=== PATIENT | male | born 1980 | race Caucasian/White ===

== ENCOUNTER 2017-01-22 23:49 | Emergency (ER) | payer MEDICAID ==
--- NOTE | 2017-01-23 01:49 | ER Document Report ---
ED Medical Screen (RME) - General Chief Complaint: Flank Pain Stated Complaint: FLANK PAIN Time seen by provider: 01:40 Notes: 36 year old male, chief complaint of left flank pain radiating to the left abdomen, severe, causing nausea, awoke him from sleep tonight. Denies fever, denies hx of the same. Took percocet and ibuprofen left over from dental procedure and this helped a lot. TRAVEL OUTSIDE OF THE [place] IN LAST 30 DAYS: No - Related Data Allergies/Adverse Reactions: No Known Allergies Allergy (Verified 04/25/14 13:03) Past Medical History Psychiatric Medical History: Reports: Hx Depression Past Surgical History: Reports: Hx Testicular Surgery - Immunizations Hx Diphtheria, Pertussis, Tetanus Vaccination: No Physical Exam - Vital signs Vitals: Temp Pulse Resp BP Pulse Ox 98.7 F 66 16 112/69 98 01/23/17 01:27 01/23/17 01:27 01/23/17 01:27 01/23/17 01:27 01/23/17 01:27 - Abdominal Tenderness: Tender - Left mid to lower abdominal tenderness without guarding - Back Back: Other - No overt CVA tenderness Course - Vital Signs Vital signs: Temp Pulse Resp BP Pulse Ox 98.7 F 66 16 112/69 98 01/23/17 01:27 01/23/17 01:27 01/23/17 01:27 01/23/17 01:27 01/23/17 01:27
[2017-01-23 03:12] LABS: ABSOLUTE BASOPHILS # (AUTO) 0.1 10^3/uL (0.0-0.2); ABSOLUTE EOSINOPHILS # (AUTO) 0.1 10^3/uL (0.0-0.6); ABSOLUTE LYMPHOCYTES (AUTO) 2.4 10^3/uL (0.5-4.7); ABSOLUTE MONOCYTES (AUTO) 0.5 10^3/uL (0.1-1.4); ABSOLUTE NEUT (AUTO) 8.3 10^3/uL (1.7-8.2); BASOPHILS % (AUTO) 0.5 % (0-2); EOSINOPHILS % (AUTO) 0.6 % (0-6); HEMATOCRIT 45.2 % (37.9-51.0); HEMOGLOBIN 15.1 g/dL (13.5-17.0); HGB HCT DIFFERENCE 0.1; LYMPHOCYTES % (AUTO) 21.3 % (13-45); MEAN CORPUSCULAR HEMOGLOBIN 27.3 pg (27.0-33.4); MEAN CORPUSCULAR HGB CONC 33.3 g/dL (32.0-36.0); MEAN CORPUSCULAR VOLUME 82 fl (80-97); MONOCYTES % (AUTO) 4.8 % (3-13); RED BLOOD COUNT 5.52 10^6/uL (4.35-5.55); SEGMENTED NEUTROPHILS % (AUTO) 72.8 % (42-78); WHITE BLOOD COUNT 11.4 10^3/uL (4.0-10.5)
[2017-01-23 03:19] LABS: APPEARANCE,URINE SLIGHTLY-CLOUDY; BILIRUBIN,URINE NEGATIVE (NEGATIVE); GLUCOSE, URINE NEGATIVE (NEGATIVE); KETONES,URINE NEGATIVE (NEGATIVE); LEUKOCYTE ESTERASE,URINE TRACE (NEGATIVE); NITRITE,URINE NEGATIVE (NEGATIVE); PROTEIN,URINE 30 mg/dL (NEGATIVE); URINE SPECIFIC GRAVITY 1.021; UROBILINOGEN,URINE NEGATIVE mg/dL (<2.0)
[2017-01-23 03:26] LABS: ANION GAP 14 (5-19); BLOOD UREA NITROGEN 18 mg/dL (7-20); CALCIUM 10.1 mg/dL (8.4-10.2); CARBON DIOXIDE 27 mmol/L (22-30); CHLORIDE 104 mmol/L (98-107); CREATININE RESULT 0.89 mg/dL (0.52-1.25); GLUCOSE 100 mg/dL (75-110); POTASSIUM 5.1 mmol/L (3.6-5.0); SODIUM 144.5 mmol/L (137-145)
[2017-01-23] MEDS ORDERED: PROMETHAZINE HCL 25 MG TABLET PO ONE (07:01)
[2017-01-23] MEDS ORDERED: TAMSULOSIN HCL 0.4 MG CAP.SR.24H PO ONE (07:01)
[2017-01-23] MEDS ORDERED: KETOROLAC TROMETHAMINE 60 MG/2 ML SDV IM ONE (07:01)
[2017-01-23] MEDS ORDERED: HYDROMORPHONE HCL INJ/PF 2 MG/ML AMPULE IM ONE (07:01)
--- NOTE | 2017-01-23 07:03 | ER Document Report ---
ED General - General Chief Complaint: Flank Pain Stated Complaint: FLANK PAIN Mode of Arrival: Ambulatory Information source: Patient Notes: 36-year-old male presents with sudden left flank pain that started at 11 PM last night. Patient notes nausea associated with it. Denies any previous similar episodes. Patient notes blood in his urine TRAVEL OUTSIDE OF THE [place] IN LAST 30 DAYS: No - HPI Onset: Yesterday Onset/Duration: Sudden Quality of pain: Sharp Severity: Moderate Pain Level: 3 Associated symptoms: Nausea Exacerbated by: Denies Relieved by: Denies Similar symptoms previously: No Recently seen / treated by doctor: No - Related Data Allergies/Adverse Reactions: No Known Allergies Allergy (Verified 04/25/14 13:03) Past Medical History - Social History Smoking Status: Never Smoker Cigarette use (# per day): No Chew tobacco use (# tins/day): Yes Smoking Education Provided: No Frequency of alcohol use: None Drug Abuse: None Family History: Reviewed & Not Pertinent Patient has suicidal ideation: No Patient has homicidal ideation: No Renal/ Medical History: Denies: Hx Peritoneal Dialysis Psychiatric Medical History: Reports: Hx Depression Past Surgical History: Reports: Hx Testicular Surgery - Immunizations Hx Diphtheria, Pertussis, Tetanus Vaccination: No Review of Systems - Review of Systems Notes: REVIEW OF SYSTEMS: CONSTITUTIONAL : Denies fever, chills, or sweats. Denies recent illness. EENT: Denies eye, ear, throat, or mouth pain or symptoms. Denies nasal or sinus congestion or discharge. Denies throat, tongue, or mouth swelling or difficulty swallowing. CARDIOVASCULAR: Denies chest pain. Denies palpitations or racing or irregular heart beat. Denies ankle edema. RESPIRATORY: Denies cough, cold, or chest congestion. Denies shortness of breath, difficulty breathing, or wheezing. GASTROINTESTINAL: Admits to nausea left flank pain GENITOURINARY: Admits to blood in urine MUSCULOSKELETAL: Denies back or neck pain or stiffness. Denies joint pain or swelling. SKIN: Denies rash, lesions or sores. HEMATOLOGIC : Denies easy bruising or bleeding. LYMPHATIC: Denies swollen, enlarged glands. NEUROLOGICAL: Denies confusion or altered mental status. Denies passing out or loss of consciousness. Denies dizziness or lightheadedness. Denies headache. Denies weakness or paralysis or loss of use of either side. Denies problems with gait or speech. Denies sensory loss, numbness, or tingling. Denies seizures. PSYCHIATRIC: Denies anxiety or stress. Denies depression, suicidal ideation, or homicidal ideation. ALL OTHER SYSTEMS REVIEWED AND NEGATIVE. Dictation was performed using [employer] voice recognition software PHYSICAL EXAMINATION: GENERAL: Well-appearing, well-nourished and in no acute distress. HEAD: Atraumatic, normocephalic. EYES: Pupils equal round and reactive to light, extraocular movements intact, sclera anicteric, conjunctiva are normal. ENT: Nares patent, oropharynx clear without exudates. Moist mucous membranes. NECK: Normal range of motion, supple without lymphadenopathy LUNGS: Breath sounds clear to auscultation bilaterally and equal. No wheezes rales or rhonchi. HEART: Regular rate and rhythm without murmurs ABDOMEN: Soft, nontender, nondistended abdomen. No guarding, no rebound. No masses appreciated. Musculoskeletal: Normal range of motion, no pitting or edema. No cyanosis. NEUROLOGICAL: Cranial nerves grossly intact. Normal speech, normal gait. Normal sensory, motor exams PSYCH: Normal mood, normal affect. SKIN: Warm, Dry, normal turgor, no rashes or lesions noted. Physical Exam - Vital signs Vitals: Temp Pulse Resp BP Pulse Ox 98.7 F 66 16 112/69 98 01/23/17 01:27 01/23/17 01:27 01/23/17 01:27 01/23/17 01:27 01/23/17 01:27 Course - Re-evaluation Re-evalutation: 01/23/17 08:03 Patient is in no distress at this time however notes the pain is starting to come back. CT was consistent with 4 mm stone. Patient given strainer pain control nausea control and follow-up with urology. Otherwise patient is stable and does not have a urinary tract infection. Appears to be dirty catch urine After performing a Medical Screening Examination, I estimate there is LOW risk for ACUTE APPENDICITIS, BOWEL OBSTRUCTION, ACUTE CHOLECYSTITIS, PERFORATED DIVERTICULITIS, INCARCERATED HERNIA, PANCREATITIS, or PERFORATED ULCER, thus I consider the discharge disposition reasonable. Also, there is no evidence or peritonitis, sepsis, or toxicity. The patient and I have discussed the diagnosis and risks, and we agree with discharging home with close follow-up with the understanding that symptoms and presentations can change. We also discussed returning to the Emergency Department immediately if new or worsening symptoms occur. We have discussed the symptoms which are most concerning (e.g., bloody stool, fever, changing or worsening pain, intractable vomiting - standard verbal up date) that necessitate immediate return. - Vital Signs Vital signs: Temp Pulse Resp BP Pulse Ox 98 F 66 18 111/76 98 01/23/17 07:35 01/23/17 07:35 01/23/17 07:35 01/23/17 07:35 01/23/17 07:35 - Laboratory Result Diagrams: 01/23/17 03:05 01/23/17 03:05 Laboratory results interpreted by me: 01/23/17 01/23/17 01/23/17 03:05 03:05 03:05 WBC 11.4 H Absolute Neutrophils 8.3 H Potassium 5.1 H Urine Protein 30 H Urine Blood MODERATE H Ur Leukocyte Esterase TRACE H - Diagnostic Test Radiology reviewed: Image reviewed, Reports reviewed - Report given to patient Discharge - Discharge Clinical Impression: Kidney stone on left side, Flank pain, Nausea Condition: Stable Disposition: HOME, SELF-CARE Instructions: Kidney Stone ([facility]) Prescriptions: Oxycodone HCl/Acetaminophen [Percocet 5-325 mg Tablet] 1 tab PO Q6 #25 tab Promethazine HCl [Phenergan 25 mg Tablet] 1 - 2 tab PO Q6H PRN #15 tablet PRN Reason: Tamsulosin HCl [Flomax 0.4 mg Cap.sr] 0.4 mg PO DAILY #7 cap.sr.24h Forms: Parent Work Note, Return to Work Referrals: LUIS AKBAR MD [ACTIVE STAFF] - Follow up in 3-5 days
[2017-01-23 07:38] VITALS: BP 111/76
== END 2017-01-23 07:38 | disposition home or self-care (01) ==
LOC: ER 23:49
DX: N20.0 Calculus of kidney (principal); R10.9 Unspecified abdominal pain; R11.0 Nausea; R31.9 Hematuria, unspecified
CPT/HCPCS: 99284; 96372; 36415; 85025; 80048; 81001; 76380; J1885; J1170; J3490 ×2

== ENCOUNTER → 2017-10-05 | Outpatient (CLI) | payer MEDICAID ==
[2017-10-05 11:49] LABS: ABSOLUTE EOSINOPHILS # (AUTO) 0.1 10^3/uL (0.0-0.6); ABSOLUTE LYMPHOCYTES (AUTO) 2.2 10^3/uL (0.5-4.7); ABSOLUTE MONOCYTES (AUTO) 0.4 10^3/uL (0.1-1.4); ABSOLUTE NEUT (AUTO) 3.7 10^3/uL (1.7-8.2); BASOPHILS % (AUTO) 0.6 % (0-2); EOSINOPHILS % (AUTO) 0.9 % (0-6); HEMATOCRIT 45.6 % (37.9-51.0); HEMOGLOBIN 15.4 g/dL (13.5-17.0); HGB HCT DIFFERENCE 0.6; LYMPHOCYTES % (AUTO) 34.7 % (13-45); MEAN CORPUSCULAR HEMOGLOBIN 27.9 pg (27.0-33.4); MEAN CORPUSCULAR HGB CONC 33.8 g/dL (32.0-36.0); MEAN CORPUSCULAR VOLUME 83 fl (80-97); MONOCYTES % (AUTO) 6.4 % (3-13); RED BLOOD COUNT 5.53 10^6/uL (4.35-5.55); RED CELL DISTRIBUTION WIDTH 13.3 % (11.5-14.0); SEGMENTED NEUTROPHILS % (AUTO) 57.4 % (42-78); WHITE BLOOD COUNT 6.4 10^3/uL (4.0-10.5)
[2017-10-05 12:26] LABS: ALANINE AMINOTRANSFERASE 50 U/L (21-72); ALBUMIN 4.6 g/dL (3.5-5.0); ALKALINE PHOSPHATASE 57 U/L (38-126); ANION GAP 10 (5-19); ASPARTATE AMINO TRANSFERASE 31 U/L (17-59); BILIRUBIN,TOTAL 0.7 mg/dL (0.2-1.3); BLOOD UREA NITROGEN 14 mg/dL (7-20); CARBON DIOXIDE 31 mmol/L (22-30); CHLORIDE 101 mmol/L (98-107); CREATININE RESULT 0.93 mg/dL (0.52-1.25); GLUCOSE 79 mg/dL (75-110); POTASSIUM 4.7 mmol/L (3.6-5.0); SODIUM 142.1 mmol/L (137-145); TOTAL PROTEIN 7.6 g/dL (6.3-8.2)
--- NOTE | 2017-10-05 12:28 | RADIOLOGY REPORT (SQ) ---
EXAM DESCRIPTION: CHEST PA/LATERAL COMPLETED DATE/TIME: 10/05/2017 11:09 am REASON FOR STUDY: UNSPECIFIED IRIDOCYCLITIS COMPARISON: None. EXAM PARAMETERS: NUMBER OF VIEWS: two views TECHNIQUE: Digital Frontal and Lateral radiographic views of the chest acquired. RADIATION DOSE: NA LIMITATIONS: none FINDINGS: LUNGS AND PLEURA: No opacities, masses or pneumothorax. No pleural effusion. MEDIASTINUM AND HILAR STRUCTURES: No masses or contour abnormalities. HEART AND VASCULAR STRUCTURES: Heart normal size. No evidence for failure. BONES: No acute findings. HARDWARE: None in the chest. OTHER: No other significant finding. IMPRESSION: NO SIGNIFICANT RADIOGRAPHIC FINDING IN THE CHEST. TECHNICAL DOCUMENTATION: JOB ID: [id number] [employer]- All Rights Reserved
[2017-10-06 08:54] LABS: TOXOPLASMA GONDII IGG AB <3.0 IU/mL (0.0-7.1); TOXOPLASMA GONDII IGM AB <3.0 AU/mL (0.0-7.9)
[2017-10-06 19:43] LABS: ANGIOTENSIN-CONVERTING ENZYME 26 U/L (14-82)
== END ==
LOC: OD 09:49
PROVIDERS: ATTEND Ophthalmology
DX: H20.9 Unspecified iridocyclitis (principal); H35.712 Central serous chorioretinopathy, left eye
CPT/HCPCS: 36415; 71020; 80048; 80076; 82164; 85025; 86021; 86038; 86430; 86480; 86592; 86777; 86778; 86812

== ENCOUNTER 2017-10-21 21:55 | Emergency (ER) | payer MEDICAID ==
--- NOTE | 2017-10-21 22:49 | EKG REPORT ---
SEVERITY:- NORMAL ECG - SINUS RHYTHM : Confirmed by: Sarah Suh 21-Oct-2017 22:48:34
[2017-10-21] MEDS ORDERED: ASPIRIN 81 MG TABLET, CHEWABLE PO ONE (23:18)
[2017-10-21] MEDS ORDERED: LIDOCAINE 2% VISCOUS SOLN 20 ML UDCUP PO ONE (23:19)
[2017-10-21] MEDS ORDERED: METOCLOPRAMIDE HCL ORAL SOLN 10 MG/10 ML UDCUP PO ONE (23:19)
[2017-10-21] MEDS ORDERED: MAG HYDROX/AL HYDROX/SIMETH SUSP 30 ML UDCUP PO ONE (23:19)
[2017-10-21 23:20] LABS: AMORPHOUS SEDIMENT,URINE TRACE /HPF; APPEARANCE,URINE CLOUDY; BILIRUBIN,URINE NEGATIVE (NEGATIVE); GLUCOSE, URINE NEGATIVE (NEGATIVE); KETONES,URINE NEGATIVE (NEGATIVE); LEUKOCYTE ESTERASE,URINE NEGATIVE (NEGATIVE); NITRITE,URINE NEGATIVE (NEGATIVE); PROTEIN,URINE NEGATIVE (NEGATIVE); URINE SPECIFIC GRAVITY 1.011; UROBILINOGEN,URINE NEGATIVE mg/dL (<2.0)
--- NOTE | 2017-10-21 23:22 | ER Document Report ---
ED Cardiac - General Chief Complaint: Chest Pain Stated Complaint: CHEST PAIN Time Seen by Provider: 10/21/17 22:59 Notes: 37 years old male presents today with epigastric pain associated with the left arm numbness and tingling sensation. At that time he also had nauseous and had difficulty in breathing. By the time he came to the ER the symptoms have subsided. He also says that he is going through a. Of stress they found some fluid behind the left ear and have been investigating it. He is a diesel mechanic construction, gets on and off substernal pain. No family history of heart disease non-smoker. TRAVEL OUTSIDE OF THE [place] IN LAST 30 DAYS: No - Related Data Allergies/Adverse Reactions: No Known Allergies Allergy (Verified 10/21/17 22:51) Past Medical History - Social History Smoking Status: Unknown if Ever Smoked Family History: Reviewed & Not Pertinent Patient has suicidal ideation: No Patient has homicidal ideation: No Renal/ Medical History: Denies: Hx Peritoneal Dialysis Psychiatric Medical History: Reports: Hx Depression Past Surgical History: Reports: Hx Testicular Surgery - Immunizations Hx Diphtheria, Pertussis, Tetanus Vaccination: No Review of Systems - Review of Systems Notes: REVIEW OF SYSTEMS: CONSTITUTIONAL : Denies fever, chills, or sweats. Denies recent illness. EENT: Denies eye, ear, throat, or mouth pain or symptoms. Denies nasal or sinus congestion or discharge. Denies throat, tongue, or mouth swelling or difficulty swallowing. CARDIOVASCULAR: As per history of complain RESPIRATORY: Denies cough, cold, or chest congestion. Denies shortness of breath, difficulty breathing, or wheezing. GASTROINTESTINAL: Denies abdominal pain or distention. Denies nausea, vomiting , or diarrhea. Denies blood in vomitus, stools, or per rectum. Denies black, tarry stools. Denies constipation. GENITOURINARY: Denies difficulty urinating, painful urination, burning, frequency, blood in urine, or discharge. MUSCULOSKELETAL: Denies back or neck pain or stiffness. Denies joint pain or swelling. SKIN: Denies rash, lesions or sores. HEMATOLOGIC : Denies easy bruising or bleeding. LYMPHATIC: Denies swollen, enlarged glands. NEUROLOGICAL: Denies confusion or altered mental status. Denies passing out or loss of consciousness. Denies dizziness or lightheadedness. Denies headache. Denies weakness or paralysis or loss of use of either side. Denies problems with gait or speech. Denies sensory loss, numbness, or tingling. Denies seizures. PSYCHIATRIC: Denies anxiety or stress. Denies depression, suicidal ideation, or homicidal ideation. ALL OTHER SYSTEMS REVIEWED AND NEGATIVE. Dictation was performed using [employer] voice recognition software PHYSICAL EXAMINATION: GENERAL: Well-appearing, well-nourished and in no acute distress. HEAD: Atraumatic, normocephalic. EYES: Pupils equal round and reactive to light, extraocular movements intact, sclera anicteric, conjunctiva are normal. ENT: Nares patent, oropharynx clear without exudates. Moist mucous membranes. NECK: Normal range of motion, supple without lymphadenopathy LUNGS: Breath sounds clear to auscultation bilaterally and equal. No wheezes rales or rhonchi. Chest wall: Chest wall tenderness noted along the sternocostal region of the lower sternal joints. HEART: Regular rate and rhythm without murmurs ABDOMEN: Soft, nontender, nondistended abdomen. No guarding, no rebound. No masses appreciated. Musculoskeletal: Normal range of motion, no pitting or edema. No cyanosis. NEUROLOGICAL: Cranial nerves grossly intact. Normal speech, normal gait. Normal sensory, motor exams PSYCH: Normal mood, normal affect. SKIN: Warm, Dry, normal turgor, no rashes or lesions noted. Physical Exam - Vital signs Vitals: Resp BP Pulse Ox 18 132/82 H 99 10/21/17 22:49 10/21/17 22:49 10/21/17 22:49 Course - Re-evaluation Re-evalutation: 10/22/17 03:25 He was pain-free since he came, was laying down comfortable, all the enzymes came back negative. - Vital Signs Vital signs: Temp Pulse Resp BP Pulse Ox 17 123/92 H 98 10/21/17 23:01 10/21/17 23:01 10/21/17 23:18 - Laboratory Result Diagrams: 10/21/17 22:52 10/21/17 22:52 Laboratory results interpreted by me: 10/21/17 22:52 Carbon Dioxide 32 H - EKG Interpretation by [facility] EKG shows normal: Sinus rhythm - Sinus rhythm at the rate of 76 bpm normal axis no acute ST elevation ST depression T-wave inversion noted. Normal cardiogram Discharge - Discharge Clinical Impression: Chest wall pain, Anxiety Chest pain Qualifiers: Chest pain type: unspecified Qualified Code(s): R07.9 - Chest pain, unspecified Condition: Fair Disposition: HOME, SELF-CARE Instructions: Chest Wall Pain ([facility]) Referrals: [facility] [Provider Group] - Follow up as needed
[2017-10-21 23:32] LABS: ALANINE AMINOTRANSFERASE 59 U/L (21-72); ALBUMIN 4.7 g/dL (3.5-5.0); ALKALINE PHOSPHATASE 56 U/L (38-126); ANION GAP 11 (5-19); ASPARTATE AMINO TRANSFERASE 29 U/L (17-59); BILIRUBIN,DIRECT 0.2 mg/dL (0.0-0.4); BILIRUBIN,TOTAL 0.4 mg/dL (0.2-1.3); BLOOD UREA NITROGEN 14 mg/dL (7-20); CARBON DIOXIDE 32 mmol/L (22-30); CHLORIDE 98 mmol/L (98-107); CREATINE KINASE 67 U/L (55-170); CREATININE RESULT 0.98 mg/dL (0.52-1.25); GLUCOSE 103 mg/dL (75-110); POTASSIUM 4.6 mmol/L (3.6-5.0); TOTAL PROTEIN 7.6 g/dL (6.3-8.2)
[2017-10-21 23:41] LABS: ABSOLUTE BASOPHILS # (AUTO) 0.1 10^3/uL (0.0-0.2); ABSOLUTE MONOCYTES (AUTO) 0.5 10^3/uL (0.1-1.4); ABSOLUTE NEUT (AUTO) 5.6 10^3/uL (1.7-8.2); BASOPHILS % (AUTO) 0.7 % (0-2); EOSINOPHILS % (AUTO) 0.5 % (0-6); HEMATOCRIT 44.6 % (37.9-51.0); HEMOGLOBIN 15.2 g/dL (13.5-17.0); LYMPHOCYTES % (AUTO) 24.3 % (13-45); MEAN CORPUSCULAR HEMOGLOBIN 28.2 pg (27.0-33.4); MEAN CORPUSCULAR VOLUME 83 fl (80-97); MONOCYTES % (AUTO) 6.2 % (3-13); RED BLOOD COUNT 5.37 10^6/uL (4.35-5.55); RED CELL DISTRIBUTION WIDTH 13.4 % (11.5-14.0); SEGMENTED NEUTROPHILS % (AUTO) 68.3 % (42-78); WHITE BLOOD COUNT 8.2 10^3/uL (4.0-10.5)
[2017-10-21 23:44] LABS: CREATINE KINASE MB 0.32 ng/mL (<4.55)
[2017-10-22 00:01] LABS: TROPONIN I < 0.012 ng/mL
--- NOTE | 2017-10-22 00:07 | RADIOLOGY REPORT (SQ) ---
EXAM DESCRIPTION: CHEST SINGLE VIEW COMPLETED DATE/TIME: 10/21/2017 11:43 pm REASON FOR STUDY: Chest pain COMPARISON: 10/05/2017 EXAM PARAMETERS: NUMBER OF VIEWS: One view. TECHNIQUE: Single frontal radiographic view of the chest acquired. RADIATION DOSE: NA LIMITATIONS: None. FINDINGS: LUNGS AND PLEURA: No opacities, masses or pneumothorax. No pleural effusion. MEDIASTINUM AND HILAR STRUCTURES: No masses. Contour normal. HEART AND VASCULAR STRUCTURES: Heart normal in size. Normal vasculature. BONES: No acute findings. HARDWARE: None in the chest. OTHER: No other significant finding. IMPRESSION: NO ACUTE RADIOGRAPHIC FINDING IN THE CHEST. TECHNICAL DOCUMENTATION: JOB ID: [id number] [employer]- All Rights Reserved
[2017-10-22 03:47] VITALS: BP 102/69
== END 2017-10-22 03:48 | disposition home or self-care (01) ==
LOC: ER 21:55
DX: R07.89 Other chest pain (principal); F41.9 Anxiety disorder, unspecified; R20.0 Anesthesia of skin; R11.0 Nausea; R06.02 Shortness of breath
CPT/HCPCS: 93005; 99284; 36415; 82553; 82550; 85025; 80053; 81001; 84484; 71010; 93010; J3490 ×3

== ENCOUNTER 2020-11-27 19:50 | Emergency (ER) | payer MEDICAID ==
[2020-11-27 20:18] LABS: ABSOLUTE EOSINOPHILS # (AUTO) 0.1 10^3/uL (0.0-0.6); ABSOLUTE LYMPHOCYTES (AUTO) 3.1 10^3/uL (0.5-4.7); ABSOLUTE MONOCYTES (AUTO) 0.5 10^3/uL (0.1-1.4); ABSOLUTE NEUT (AUTO) 3.8 10^3/uL (1.7-8.2); BASOPHILS % (AUTO) 0.6 % (0-2); EOSINOPHILS % (AUTO) 1.3 % (0-6); HEMOGLOBIN 15.1 g/dL (13.5-17.0); LYMPHOCYTES % (AUTO) 41.7 % (13-45); MEAN CORPUSCULAR HEMOGLOBIN 27.1 pg (27.0-33.4); MEAN CORPUSCULAR HGB CONC 32.8 g/dL (32.0-36.0); MEAN CORPUSCULAR VOLUME 83 fl (80-97); MONOCYTES % (AUTO) 6.3 % (3-13); PLATELET COUNT 219 10^3/uL (150-450); RED BLOOD COUNT 5.57 10^6/uL (4.35-5.55); RED CELL DISTRIBUTION WIDTH 12.8 % (11.5-14.0); SEGMENTED NEUTROPHILS % (AUTO) 50.1 % (42-78); TOTAL CELLS COUNTED % (AUTO) 100 %; WHITE BLOOD COUNT 7.5 10^3/uL (4.0-10.5)
[2020-11-27 20:32] LABS: ALBUMIN 4.5 g/dL (3.5-5.0); ALKALINE PHOSPHATASE 56 U/L (38-126); ASPARTATE AMINO TRANSFERASE 41 U/L (17-59); BILIRUBIN,DIRECT 0.2 mg/dL (0.0-0.4); BILIRUBIN,TOTAL 0.4 mg/dL (0.2-1.3); BLOOD UREA NITROGEN 14 mg/dL (7-20); CALCIUM 10.5 mg/dL (8.4-10.2); CREATINE KINASE 74 U/L (55-170); GLUCOSE 98 mg/dL (75-110); POTASSIUM 4.3 mmol/L (3.6-5.0); TOTAL PROTEIN 7.5 g/dL (6.3-8.2)
[2020-11-27 20:37] LABS: CARBON DIOXIDE 33 mmol/L (22-30); CHLORIDE 102 mmol/L (98-107)
[2020-11-27 20:44] LABS: ANION GAP 4 (5-19)
[2020-11-27 20:56] LABS: CREATINE KINASE MB 0.31 ng/mL (<4.55); TROPONIN I < 0.012 ng/mL
[2020-11-27] MEDS ORDERED: PREDNISONE 20 MG TABLET PO ONE (21:00)
--- NOTE | 2020-11-27 21:02 | ER Document Report ---
Entered by LIN TELLES SCRIBE 11/27/202021 Acting as scribe for:MARIA DEL CARMEN ARTIS IV, MD ED Cardiac - General Chief Complaint: Chest Pain > 30 Stated Complaint: CHEST PAIN Time Seen by Provider: 11/27/20 20:20 Mode of Arrival: Ambulatory Information source: Patient Notes: This 40-year-old male patient presents to the emergency department today with complaints of chest pain for the last x3-4 days. Patient mentions that he has a numbness and tingling sensation in his left hand at times. Patient mentions that he knows he has bulging discs in his neck that need to be operated on and he thinks it could be related to this. Patient states it "kind of hurts to breathe" and he mentions that certain movements exacerbate his chest wall pain. He mentions that he has a lot of "neck and back tension" and adds that he thinks this could be the cause of the pain. TRAVEL OUTSIDE OF THE [place] IN LAST 30 DAYS: No - Related Data Allergies/Adverse Reactions: No Known Allergies Allergy (Verified 10/21/17 22:51) Past Medical History - General Information source: Patient - Social History Smoking Status: Never Smoker Cigarette use (# per day): No Chew tobacco use (# tins/day): Yes Frequency of alcohol use: Heavy Drug Abuse: None Lives with: Family Family History: Reviewed & Not Pertinent Musculoskeletal Medical History: Reports Other - "bulging discs" in neck Psychiatric Medical History: Reports: Hx Depression Past Surgical History: Reports: Hx Testicular Surgery - Immunizations Hx Diphtheria, Pertussis, Tetanus Vaccination: No Review of Systems - Review of Systems Constitutional: No symptoms reported EENT: No symptoms reported Cardiovascular: See HPI, Chest pain Respiratory: No symptoms reported Gastrointestinal: No symptoms reported Genitourinary: No symptoms reported Male Genitourinary: No symptoms reported Musculoskeletal: See HPI, Back pain, Muscle pain, Muscle stiffness, Neck pain Skin: No symptoms reported Hematologic/Lymphatic: No symptoms reported Neurological/Psychological: No symptoms reported -: Yes All other systems reviewed and negative Physical Exam - Vital signs Vitals: Temp Pulse Resp BP Pulse Ox 98.9 F 76 16 122/73 99 11/27/20 20:02 11/27/20 20:02 11/27/20 20:02 11/27/20 20:02 11/27/20 20:02 - Notes Notes: Physical Exam: General: Alert, appears quite anxious. HEENT: Normocephalic. Atraumatic. PERRL. Extraocular movements intact. Oropharynx clear. Neck: Supple. Non-tender. Respiratory: No respiratory distress. Clear and equal breath sounds bilaterally. Anterior chest wall tenderness to palpation. Cardiovascular: Regular rate and rhythm. Abdominal: Normal Inspection. Non-tender. No distension. Normal Bowel Sounds. Back: Mild left sided trapezius muscle spasm. No gross abnormalities. Extremities: Moves all four extremities. Upper extremities: Normal inspection. Normal ROM. Lower extremities: Normal inspection. No edema. Normal ROM. Neurological: Normal cognition. AAOx4. Normal speech. Psychological: Normal affect. Normal Mood. Skin: Warm. Dry. Normal color. Course - Re-evaluation Re-evalutation: 11/27/20 21:44 Differential diagnosis: Anxiety, muscle tension secondary to stress, chest wall pain, insomnia, ACS, gastritis, biliary colic, pancreatitis MDM: Patient's EKG is normal and looks exactly the same as his prior EKG done 10/21/2017. Patient's troponin is negative patient has tenderness to palpation over his left pectoralis and his left trapezius. He has a very anxious demeanor. I believe the patient is having discomfort in his back in the midline related to a inflamed desk and I believe it is worthwhile to put patient on prednisone for 5 days to help with that. Patient has Flexeril at home that he can use for muscle tension. Patient states that he has a hard time "winding down" at night and has a lot of problems with insomnia and falling asleep. In addition to a prescription for prednisone, I am going to write the patient for a few Vistaril tablets to take at bedtime to hopefully help with his insomnia, which in turn may give him better night sleep and help him feel more energized, less anxious and less irritable during the day. Given that the patient states his chest pain has been present for 3 to 4 days, has a normal EKG and any further work-up for ACS or checking additional troponins as necessary given his first troponin being negative. Results of ED MSE discussed with patient. All questions were answered prior to discharge. Emergency signs and symptoms, reasons to return to the emergency department discussed with patient. 11/27/20 21:50 - Vital Signs Vital signs: Temp Pulse Resp BP Pulse Ox 98.9 F 76 11 L 115/73 98 11/27/20 20:02 11/27/20 20:02 11/27/20 20:19 11/27/20 20:19 11/27/20 20:19 - Laboratory Results Result Diagrams: 11/27/20 20:07 11/27/20 20:07 Laboratory Results Interpreted: 11/27/20 11/27/20 20:07 20:07 RBC 5.57 H Carbon Dioxide 33 H Anion Gap 4 L Calcium 10.5 H Critical Laboratory Results Reviewed: No Critical Results Attending or Supervising Physician who Reviewed Labs: MARIA DEL CARMEN ARTIS IV - Radiology Results Critical Radiology Results Reviewed: No Critical Results Attending or Supervising Physician who Reviewed Radiology: MARIA DEL CARMEN ARTIS IV - EKG Interpretation by Me Additional EKG results interpreted by me: 11/27/20 21:52 EKG obtained on 120 12/08/2020 at 1957 hrs. was interpreted by this MD. Findings: Normal sinus rhythm, rate 88, normal axis, RI interval appears to be within normal limits, P waves preceding QRS complexes, QRS complexes appear narrow, there are no obvious patterns of ST segment elevation, depression or reciprocal changes present to suggest acute myocardial ischemia or infarction. When compared with prior EKG from 10/21/2017, the gross morphology of the 2 EKGs is unchanged. Impression normal EKG. Discharge - Discharge Clinical Impression: Chest wall pain, Neck pain, Anxiety as acute reaction to exceptional stress Insomnia Qualifiers: Insomnia type: unspecified Qualified Code(s): G47.00 - Insomnia, unspecified Condition: Stable Disposition: HOME, SELF-CARE Instructions: Chest Wall Pain ([facility]) Additional Instructions: Return to the Emergency Department without delay if any worse. HOME CARE INSTRUCTIONS & INFORMATION: Thank you for choosing us for your medical needs. We hope you're satisfied with the care you received. After you leave, you must properly care for your problem and, at the same time, observe its progress. Any condition can change. Some illnesses can change rapidly over hours or days. If your condition worsens, return to the Emergency Department or see your physician promptly. ABOUT YOUR X-RAYS AND EKG'S: If you had an EKG or X-rays taken, they have been read by the Emergency Physician. The X-rays and EKG's will also be read by a Radiologist or Body Mechanic within 24 hours. If discrepancies are noted, you will be notified by telephone. Please be certain the ED has a correct telephone number & address where you can be reached. Also, realize that some fractures or abnormalities do not show up on initial X-rays. If your symptoms continue, see your physician. ABOUT YOUR LABORATORY TEST: If you had laboratory tests, the results have been reviewed by the Emergency Physician. Some test results (for example cultures) may not be available for several days. You will be contacted if any test result shows you need additional treatment. Please be certain the ED has a correct [employer] number and address where you can be reached. ABOUT YOUR MEDICATIONS: You will receive instructions on how to take your medicine on the prescription label you receive. Additional information may be provided by the Pharmacy. If you have questions afterwards, call the ED for clarification or further instructions. Some prescribed medications may cause drowsiness. Do not perform tasks such as driving a car or operating machinery without consulting your Pharmacist. If you feel you need a refill of pain medication, your condition will need re-evaluation. Please do not call for a refill of any medication. ABOUT YOUR SIGNATURE: Signature of this document acknowledges to followin. Understanding that you received emergency treatment and that you may be released before al medical problems are known or treated. Please be certain the ED has a correct phone number & address where you can be reached. 2. Acknowledgement that you will arrange for follow-up care as recommended. 3. Authorization for the Emergency Physician to provide information to your follow-up Physician in order to maximize your care. AT ANY TIME, IF YOUR SYMPTOMS CHANGE SIGNIFICANTLY OR WORSEN OR YOU DEVELOP NEW SYMPTOMS, RETURN TO THE EMERGENCY DEPARTMENT IMMEDIATELY FOR RE-EVALUATION. OUR GOAL IS TO PROVIDE EXCELLENT MEDICAL CARE! WE HOPE THAT WE HAVE MET YOUR EXPECTATIONS DURING YOUR EMERGENCY DEPARTMENT VISIT AND THAT YOU FEEL YOU HAVE RECEIVED EXCELLENT CARE! Anxiety The physician feels that some of your health problems are being caused by anxiety. Anxiety affects your health in many ways. Anxiety alone can cause palpitations, sweats, chest pains, abdominal pains, shortness of breath, and headaches. It contributes to ulcer disease, high blood pressure, irritable bowel syndrome, and has been shown to cause flare-ups of many other diseases. Anxiety is not a simple disorder to treat. If the anxiety is due to recent life stresses, you may simply need time to "work through" the changes. If the anxiety is due to an underlying unhappiness with yourself or due to psychiatric disturbance, professional help will be needed. Your physician can refer you for further help if needed. Anti-anxiety medication is occasionally given if the stress is acute or if you are having trouble sleeping. Chronic or frequent use of these medications is not a good idea because the body becomes reliant on it, preventing you from dealing with life's normal stresses. Insomnia Everybody has trouble sleeping now and then. When it becomes a frequent problem, you must look for an underlying cause. Depression can interfere with sleep. Anxiety keeps people from falling asleep, while true depression causes fitful sleep and early awakening. If you think anxiety or depression might be your problem, your doctor can help. Many medicines can interfere with sleep. Try cutting back or eliminating caffeine. Watch out for "energizing" vitamins and herbs! Alcohol interferes powerfully with normal sleep. "Rebound insomnia" results when you stop taking sedating medicines like antihistamines, antianxiety medicine, or sleeping pills. Any medical problem that causes pain or bladder discomfort can interfere with sleep. Discuss any problem you have with your doctor. Get regular exercise. Have regular sleep times. Don't "sleep in." Avoid late afternoon naps. Sleeping pills may be temporarily helpful, but are never a long-term solution. Prescriptions: Prednisone [Deltasone 20 mg Tablet] 3 tab PO QAM 4 Days #12 tablet Hydroxyzine Pamoate [Vistaril 25 mg Capsule] 25 mg PO HSP PRN #7 capsule PRN Reason: insomnia Referrals: ADAN VO MD [HONORARY] - Follow up as needed I personally performed the services described in the documentation, reviewed and edited the documentation which was dictated to the scribe in my presence, and it accurately records my words and actions.
--- NOTE | 2020-11-27 21:18 | RADIOLOGY REPORT (SQ) ---
EXAM DESCRIPTION: XR CHEST 2 VIEWS COMPLETED DATE/TME: 11/27/2020 20:18 CLINICAL HISTORY: 40 years, Male, chest pain COMPARISON: October 21, 2017 NUMBER OF VIEWS: 2 TECHNIQUE: 2 views of the chest were obtained LIMITATIONS: None. FINDINGS: The heart size is within normal limits. Lungs are clear. There is no evidence of pleural effusion or pneumothorax. No bony abnormality is seen. IMPRESSION: No acute abnormality as above. copyright 2010 [employer]- All Rights Reserved
--- NOTE | 2020-11-27 22:24 | EKG REPORT ---
SEVERITY:- NORMAL ECG - SINUS RHYTHM : Confirmed by: Theron Nicole MD 27-Nov-2020 22:23:59
[2020-11-27 22:26] VITALS: BP 104/78
--- OUTSIDE RECORDS SUMMARY | 2020-11-30 10:38 | XMS REPORT ---
:1980 Author Organization [facility] Address [facility] [address] [place] [id number] Care Team Providers Name Role Phone KAILA BASHIR Attending Clinician Unavailable AJ Attending Clinician Unavailable Katt LEA PA-C Attending Clinician Unavailable Allergies, Adverse Reactions, Alerts This patient has no known allergies or adverse reactions. Medications This patient has no known medications. Problems This patient has no known problems. Procedures This patient has no known procedures. Results Test Description Test Time Test Comments Text Results Atomic Results Result Comments CAT 2017-03-[address] [id number] SCAN 16:51:00 ---- Patient: GRZEGORZ PIZARRO JR : 1980 Sex: M Address: [address] [place] [address] [place] [address] Unit #: [id number] REQ SEQ #: [id number] Location: Room #: Ordering: FISH RODRIGEZ DO Diagnosis: KIDNEY STONES/ABDOMINAL/BACK PAIN/NAUSEA ---- CT ABD PEL VIS WO (NO ORAL OR IV) Clinical Information: KIDNEY STONES/ABDOMINAL/BACK PAIN/NAUSEA. Left flank pain. Serial transaxial sections of the abdomen and pelv is were obtained without intravenous or oral contrast administration. Reformatted images were obtained in the coronal and sagittal planes. Abdomen: There i s mild to moderate left hydronephrosis and associated perinephric stranding. There is dilatation of the left ureter down to a 5 mm calcification just proximal to the left ureterovesical junction consistent with an obstructing stone. There are no renal calcifications. There is no evidence of right hydronephrosis o r ureteral calcifications. The lung bases are unremarkable. The liver, spleen, pancreas and adrenal glands are unremarkable. The gallbladder is unremarkabl e. There is no evidence of dilated bile ducts. There is no evidence of retroperitoneal or retrocrural adenopathy. There is no evidence of a mesenteric mass or abdominal ascites. Pelvis: The prostate gland, seminal vesicles and urinary bladder are unremarkable. There is no evidence of a pelvic mass or abnormal pelv ic fluid collection. There is no evidence of pelvic or inguinal adenopathy. Impression: Distal left ureteral stone with associated mild to moderate left hy dronephrosis and perinephric stranding. Final report electronically signed by: Maury King MD Signed by: MAURY KING MD 03/02/17 [id number] cc: MAURY KING MD, BRYAN DO Encounters Start End Encounter Admission Attending Care Care Encounter Date/Time Date/Time Type Type Clinicians Facility Department ID 2017-03-08 2017-03-08 Outpatient EL KRYSTEN, [facility] [id number] 00:01:00 00:01:00 KAILA 40 2017-03-02 2017-03-02 Emergency ED AJ, [facility] [id number] 15:53:00 19:42:00 KRISTIN Stewart 2016-05-25 2016-05-25 Emergency ED , [facility] [id number] 07:36:00 10:18:00 KENDRA Tripp Payers Payer Name Policy Type Policy Number Effective Date Expiration D ate Social History This patient has no known social history. Vital Signs Vital Name Observation Time Observation Value Comments HEIGHT 2017-03-08 09:30:00 157.819541 cm WEIGHT 2017-03-08 09:30:00 58.3 kg WEIGHT 2017-03-08 00:01:00 58.3 kg HEIGHT 2017-03-08 00:01:00 157.030517 cm WEIGHT 2017-03-02 15:53:00 81.000 kg HEIGHT 2017-03-02 15:53:00 170.147951 cm WEIGHT 2016-05-25 07:36:00 61.800 kg
== END 2020-11-27 22:26 | disposition home or self-care (01) ==
LOC: ER 19:50
DX: R07.89 Other chest pain (principal); M62.830 Muscle spasm of back; R20.0 Anesthesia of skin; R20.2 Paresthesia of skin; M54.9 Dorsalgia, unspecified; M54.2 Cervicalgia; G47.00 Insomnia, unspecified; F41.1 Generalized anxiety disorder; F43.0 Acute stress reaction
CPT/HCPCS: 93005; 99285; 36415; 82553; 82550; 83690; 85025; 80053; 84484; 71046; 93010; J7512